=== PATIENT | male | born 2000 | race African-American/Black ===

== ENCOUNTER 2018-10-16 06:50 | Inpatient (IN) | payer OTHER ==
[~2018-10-16] VITALS: Ht 175.3 cm; Wt 57.8 kg
[2018-10-16] MEDS ORDERED: PRED20TA PO (07:09)
[2018-10-16] MEDS ORDERED: HYDR-3363 PO (07:09)
[2018-10-16] MEDS ORDERED: ALLE1DRO2 OP (07:09)
[2018-10-16] MEDS ORDERED: FAMOTIDINE IV BAG 20 MG in APPROPRIATE DILUENT 1 EA IV ONE (07:15)
[2018-10-16] MEDS ORDERED: methylPREDNISolone INJ 125 MG/2 ML VIAL (J2930) IV ONE (07:15)
[2018-10-16] MEDS ORDERED: diphenhydrAMINE INJ 50MG/ML VIAL (J1200) IV ONE (07:15)
[2018-10-16] MEDS ORDERED: **UNRESOLVED NON-FORMULARY MED ORDER XX SCH (09:00)
[2018-10-16] MEDS ORDERED: ZADI1DRO OU (09:24)
[2018-10-16] MEDS ORDERED: HYDR50TA70 PO (09:24)
[2018-10-16] MEDS ORDERED: EPIP0.3I2 IM (09:25)
[2018-10-16] MEDS ORDERED: NS 1,000 ML IV ONE (09:30)
[2018-10-16 09:53] LABS: BASO % 0.4 % (0.0-1.0); EOS # 0.2 10^3/uL (0.0-0.50); EOS % 3.3 % (0.0-3.0); HEMATOCRIT 40.9 % (42.0-52.0); HEMOGLOBIN 13.5 g/dl (13.5-17.5); LYMPH # 1.1 10^3/uL (1.5-6.5); LYMPH % 16.1 % (24.0-44.0); MEAN CORPUSCULAR HEMOGLOBIN 30.4 pg (27.0-33.0); MEAN CORPUSCULAR VOLUME 92.1 fl (80.0-96.0); MONO # 0.4 10^3/uL (0.0-0.8); MONO % 5.2 % (0.0-5.0); NEUTROPHILS # 5.3 10^3/uL (1.8-7.7); NEUTROPHILS % 74.7 % (36.0-66.0); PLATELET COUNT, AUTOMATED 228 10^3/uL (150-450); RED BLOOD COUNT 4.44 10^6/uL (4.30-6.10); WHITE BLOOD COUNT 7.1 10^3/uL (4.0-10.0)
[2018-10-16 10:00] LABS: BLOOD UREA NITROGEN 16 MG/DL (7-18); C REACTIVE PROTEIN QUANTITATIV 0.67 MG/DL (0.00-0.30); CALCIUM LEVEL 9.3 MG/DL (8.5-10.1); CARBON DIOXIDE LEVEL 29 MEQ/L (21-32); CHLORIDE LEVEL 105 MEQ/L (98-107); CREATININE FOR GFR 1.07 MG/DL (0.70-1.30); GLUCOSE, FASTING 90 MG/DL (70-100); POTASSIUM SERUM 3.7 MEQ/L (3.5-5.1); SODIUM LEVEL 139 MEQ/L (136-145)
[2018-10-16 10:14] LABS: ERYTHROCYTE SEDIMENTATION RATE 27 mm/hr (0-15)
[2018-10-16] MEDS ORDERED: ACETAMINOPHEN TAB 650MG DOSE (2X325MG) PO PRN (13:45)
[2018-10-16 14:26] VITALS: BP 134/72
[2018-10-16] MEDS: LACRILUBE (AKWA TEARS) OPHTH OINT 3.5 GM OU SCH ×3 (14:52→20:41)
[2018-10-16] MEDS: SANDIMMUNE PO SCH ×2 (15:49→20:43)
--- NOTE | 2018-10-16 16:50 | HPEPDOC ---
General Date of Admission Oct 16, 2018 at 13:05 Chief Complaint The patient is a 18-year-old male admitted with a reason for visit of Santo J ohnson Syndrome. History of Present Illness The patient is a 18 y/o male who presents to the ER for concerns regarding pain in oral mucosa, gum bleeding as well as difficulty opening eyes/" film" in his eyes The patient reports that last week, he had a respiratory infection. At that time had some cough with some brownish sputum as well as burning in his throat. He reports this week the cough has been whitish/greenish. No associated fevers/chills or sweats. The throat burning has improved. However, on Sunday night, he noticed that his eyes felt a little sticky. He reports he has allergies to hospice as well as some kind of treehe reports he had a allergy testing done previously but is unsure as to what tree exactly he was allergic to. On Sunday, the patient noticed that his lips and face were swollen and also felt some pain on the inside of his lips when he thought there might be some carts. He also noticed on Sunday when he tried to pressures teeth that there was some gum bleeding. On Sunday, he noticed bumps under the tongue. He reports that the inside of his mouth started burning. He reports he was started on prednisone 40 mg daily as well as hydroxyzine 50 mg which she [place]. On Sunday morning, he reports it took a while for him to be able to open his eyes as they were sticky. His mouth was burning again. Today, the patient reports he could not open his eyes again and he also has been having difficulty swallowing food secondary to the pain in his mouth. As a result, he presented to the ER. No specific aggravating factor. No specific relieving factor. Severity of his symptoms is moderate. As noted, symptoms did not improve despite prednisone and hydroxyzine. Home Medications Scheduled Prednisone (Prednisone) 20 Mg Tablet, 40 MG PO TAPER, (Reported) TAPERING DOSE Scheduled PRN Epinephrine (Epipen 2-Srini) 0.3 Mg/0.3 Ml Auto.injct, 1 SYRINGE IM ONCE PRN for ALLERGIC REACTION, (Reported) Hydroxyzine HCl (Hydroxyzine HCl) 50 Mg Tablet, 50 MG PO TID PRN for ITCHING, (Reported) Ketotifen Fumarate (Zaditor) 5 Ml Drops, 1 DROP OU BID PRN for ITCHING, (Reported) Allergies Coded Allergies: horse dander (Unverified Allergy, Unknown, 10/16/18) Past Medical History Medical History None Surgical History None Family History Denies any major medical problems in the family. Family history was personally reviewed. Social History * Smoker: Denies Alcohol: Denies Drugs: denies Review of Systems Other systems Negative for 10 systems except as noted above Physical Examination General Exam: Positive: Alert, Cooperative, No Acute Distress Eye Exam: Positive: PERRLA, Other Eye Symptoms (slight conjunctival injection. Cornea appears clear. Slight thickened secretions/superficial material noted - no obvious purulence.) ENT Exam: Positive: Other ENT (superficial sloughing involving oral mucosa or the palate, buccal mucosa as well as under the tongue) Chest Exam: Positive: Clear to auscultation, Normal air movement Heart Exam: Positive: Rate Normal, Normal S1, Normal S2 Abdomen Exam: Positive: Normal bowel sounds, Soft Skin Exam: Negative: Rash Neuro Exam: Positive: Other (awake, alert, oriented 3. Strength 5 over 5 in bilateral upper and lower extremities. No lateralizing deficit.) Psych Exam: Positive: Mental status NL Vital Signs Vital Signs Date Time Temp Pulse Resp B/P (MAP) Pulse Ox O2 Delivery O2 Flow Rate FiO2 10/16/18 10:53 98.1 67 17 129/74 (92) 100 Room Air Laboratory Data Labs 24H Laboratory Tests 2 10/16/18 09:21: Immature Granulocyte % (Auto) 0.3, White Blood Count 7.1, Red Blood Count 4.44, Hemoglobin 13.5, Hematocrit 40.9L, Mean Corpuscular Volume 92.1, Mean Corpuscular Hemoglobin 30.4, Mean Corpuscular Hemoglobin Concent 33.0, Red Cell Distribution Width 14.6H, Platelet Count 228, Neutrophils (%) (Auto) 74.7H, Lymphocytes (%) (Auto) 16.1L, Monocytes (%) (Auto) 5.2H, Eosinophils (%) (Auto) 3.3H, Basophils (%) (Auto) 0.4, Neutrophils # (Auto) 5.3, Lymphocytes # (Auto) 1.1L, Monocytes # (Auto) 0.4, Eosinophils # (Auto) 0.2, Basophils # (Auto) 0.0, Nucleated Red Blood Cells % (auto) 0.0, Erythrocyte Sedimentation Rate 27H, Anion Gap 5L, Blood Urea Nitrogen 16, Creatinine 1.07, Sodium Level 139, Potassium Level 3.7, Chloride Level 105, Carbon Dioxide Level 29, Calcium Level 9.3, C-Reactive Protein, Quantitative 0.67H CBC/BMP Laboratory Tests 10/16/18 09:21 Red Blood Count 4.44, Mean Corpuscular Volume 92.1, Mean Corpuscular Hemoglobin 30.4, Mean Corpuscular Hemoglobin Concent 33.0, Red Cell Distribution Width 14.6 H, Neutrophils (%) (Auto) 74.7 H, Lymphocytes (%) (Auto) 16.1 L, Monocytes (%) (Auto) 5.2 H, Eosinophils (%) (Auto) 3.3 H, Basophils (%) (Auto) 0.4, Neutrophils # (Auto) 5.3, Lymphocytes # (Auto) 1.1 L, Monocytes # (Auto) 0.4, Eosinophils # (Auto) 0.2, Basophils # (Auto) 0.0, Calcium Level 9.3 Microbiology Microbiology 10/16/18 Group A Streptococcus Screen (TASIA), Received Pending Assessment/Plan Conjunctival injection as well as superficial sloughing of oral mucosa, 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 Norwood from ophthalmologyhe recommends ophthalmic prednisone as well as moxifloxacin eyedrops. -Because of the sloughing, patient had developed a film over his eyes which was limiting his vision - the film was cleared by Dr. Norwood today. -Outpatient follow-up with him in one week if improves, otherwise he will reevaluate as inpatient if needed. -Patient would certainly benefit from dermatology follow-up as well on dischargecurrently we do not have dermatology distribution analyst -Discussed with patientwe will monitor him closely. If he has worsening symp toms, may require her to a tertiary facility. Cough: -Likely related to upper respiratory infection -Lungs sound clear -Afebrile -Normal WBC -No indication for antibiotics at this time. DVT prophylaxis: -SCDs Disposition: -Admit to medical floor as inpatient as patient has failed outpatient treatment. Anticipated length of stay more than 2 midnights. Anticipate discharge home once medically stable. Plan / VTE VTE Prophylaxis Ordered?: Yes VTE Exclusion Pharmacological: At Low Risk for VTE SERINA CASTELLANOS MD Oct 16, 2018 14:03
[2018-10-16] MEDS: prednisoLONE ACET 1% OPHTH SUSP 5ML OU SCH ×2 (18:16→20:41)
[2018-10-16] MEDS: predniSONE 20 MG TAB PO SCH (20:40)
[2018-10-16] MEDS: OFLOXACIN 0.3 % (OCUFLOX) OPTH SOL 5ML OU SCH (20:44)
[2018-10-16 22:00] VITALS: BP 131/61
[2018-10-17] MEDS: LACRILUBE (AKWA TEARS) OPHTH OINT 3.5 GM OU SCH ×6 (01:21→20:59)
[2018-10-17 06:00] VITALS: BP 124/64
[2018-10-17 06:01] LABS: HEMATOCRIT 42.4 % (42.0-52.0); HEMOGLOBIN 14.2 g/dl (13.5-17.5); MEAN CORPUSCULAR HEMOGLOBIN 29.8 pg (27.0-33.0); MEAN CORPUSCULAR HGB CONC 33.5 g/dl (32.0-36.5); MEAN CORPUSCULAR VOLUME 89.1 fl (80.0-96.0); PLATELET COUNT, AUTOMATED 279 10^3/uL (150-450); RED BLOOD COUNT 4.76 10^6/uL (4.30-6.10); WHITE BLOOD COUNT 7.2 10^3/uL (4.0-10.0)
[2018-10-17 06:28] LABS: ALBUMIN 3.8 GM/DL (3.2-5.2); ALT/SGPT 19 U/L (12-78); BILIRUBIN,TOTAL 0.6 MG/DL (0.2-1.0); BLOOD UREA NITROGEN 17 MG/DL (7-18); CALCIUM LEVEL 9.1 MG/DL (8.5-10.1); CARBON DIOXIDE LEVEL 25 MEQ/L (21-32); CHLORIDE LEVEL 104 MEQ/L (98-107); GLUCOSE, FASTING 106 MG/DL (70-100); POTASSIUM SERUM 3.8 MEQ/L (3.5-5.1); SODIUM LEVEL 138 MEQ/L (136-145); TOTAL PROTEIN 7.8 GM/DL (6.4-8.2)
--- NOTE | 2018-10-17 08:15 | CR ---
DATE OF CONSULTATION: 10/16/2018 CHIEF COMPLAINT: Red eyes HISTORY OF PRESENT ILLNESS: 18-year-old old -Citizen Of [place] male who presented to the emergency department with 5 days of oral ulcers and bilateral red eyes and irritation. He reports a history two other similar episodes but no eye involvement about 4 years ago and was worked up at the time and found to be allergic to "horses". He was in his normal state of health prior to last Sunday when he had a mild viral prodrome with fatigue and a cough. Sunday, he began to develop oral ulcers as well as bilateral eye irritation. He denies any ocular discharge. He states that his vision in left eye is slightly blurry, which has always been weaker than the right eye. He does not wear contact lenses or corrective glasses. The patient denies any recent change in medications or recent travel outside of the [place]. PAST MEDICAL HISTORY: Please see chart. No new medications. PAST OCULAR HISTORY: History of poor vision or reduced vision in the left eye. No history of prior ocular surgery. No ocular medications. REVIEW OF SYSTEMS: Patient has no upper or lower extremity rash. No truncal rash. No rash on the face or periocular area. He does have angioedematous upper and lower lips with mucosal ulceration on inside of the mouth. He denies any genital ulcers or ulcers elsewhere on the body. He has ocular irritation and foreign body sensation. EXAM: Exam is a limited bedside exam. Visual acuity is approximately 20/30 in the right and 20/60 in the left eye uncorrected. Extraocular muscles are full without gaze restriction bilaterally. Pupils are equal and round and reactive to light, 4 mm to 2 mm in bright conditions with no RAPD. He is in no acute distress. Awake, alert and oriented times three and appears comfortable in bed, watching TV. He has upper and lower angioedematous lips with ulceration as well as onto the tongue. Conjunctiva and sclerae are mildly injected OU. Upon lower and upper lid eversion, there is pseudomembrane formation that does not bleed on removal. This was removed bilaterally and the fornices were swept. The cornea is clear OU with no corneal abrasion. The lens is clear. The iris is brown and flat. Dilated fundus exam was deferred at this time. ASSESSMENT/PLAN: 1. 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 Could potentially be viral or bacterial given recent illness versus recurrent autoimmune atopic condition. 2. Pseudomembranous conjunctivitis. 3. 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 PLAN: If available, preservative-free artificial tears every 1 hour bilaterally while awake and ointment ocular lubricant while asleep. If this is not available, he can use ocular ointment preservative free, every 4 hours. Start prednisolone acetate 1% four times a day in both eyes. Moxifloxacin drops 0.5% one drop four times a day bilaterally. Patient will be scheduled to be seen in the office in approximately 5-7 days upon discharge or sooner if there is any change in his ocular status. Dermatology was consulted, Dr. Simon Hill regarding the oral ulcers and possible skin rash around the mouth. This consultation was relayed to dermatology as well as the primary team, Dr. Alvarado taking care of Mr. Taylor. Thank you for this consultation. I will be happy to see the patient as needed while inpatient if there is a change in ocular status. Otherwise, he can followup as an outpatient in about 5-7 days. MARVA
[2018-10-17] MEDS: prednisoLONE ACET 1% OPHTH SUSP 5ML OU SCH ×4 (08:27→20:59)
[2018-10-17] MEDS: OFLOXACIN 0.3 % (OCUFLOX) OPTH SOL 5ML OU SCH ×4 (08:27→20:59)
[2018-10-17] MEDS: predniSONE 20 MG TAB PO SCH ×2 (08:27→20:59)
[2018-10-17] MEDS: SANDIMMUNE PO SCH (08:27)
[2018-10-17] MEDS ORDERED: AZITHROMYCIN 250 MG TAB PO ONE (09:15)
--- NOTE | 2018-10-17 09:38 | IPNPDOC ---
Date Seen The patient was seen on 10/17/18. Progress Note CONSULTANTS: OPTHALMOLOGIST: DR. NORWOOD ENT: DR. TELLES DUMBWAITER OPERATOR: DR. CHAPMAN SUBJECTIVE: Pt continues to complain of sore throat, tongue tenderness, and gingival pain. "It feels like the skin in my throat is burning." No c/o sob. c/o odynophagia. no hematemesis, nausea, or vomiting. still w painful eyes. no redness. Per Compliance And Control Analyst,Dr. Chapman, check mono, mycoplasma, and respiratory panel due to h/o URI symptoms, continue tapered prednisone, and dc cyclosporine. ENT. Dr. Telles has been consulted for odynophagia for laryngoscopy. Physical Examination General Exam: Positive: Alert, Cooperative, No Acute Distress Eye Exam: Positive: PERRLA, Other Eye Symptoms (slight conjunctival injection. Cornea appears clear. Slight thickened secretions/superficial material noted - no obvious purulence.) ENT Exam: Positive: Other ENT (superficial sloughing involving oral mucosa or the palate, buccal mucosa as well as under the tongue) Chest Exam: Positive: Clear to auscultation, Normal air movement Heart Exam: Positive: Rate Normal, Normal S1, Normal S2 Abdomen Exam: Positive: Normal bowel sounds, Soft Skin Exam: Negative: Rash Neuro Exam: Positive: Other (awake, alert, oriented 3. Strength 5 over 5 in bilateral upper and lower extremities. No lateralizing deficit.) Psych Exam: Positive: Mental status NL LABORATORY DATA, IMAGING STUDIES, MICROBIOLOGY: PLS SEE BELOW Assessment/Plan The patient is a 18 y/o male who presents to the ER for concerns regarding pain in oral mucosa, gum bleeding as well as difficulty opening eyes/" film" in his eyes. The patient reports that last week, he had a respiratory infection. At that time had some cough with some brownish sputum as well as burning in his throat. He reports this week the cough has been whitish/greenish. No associated fevers/chills or sweats. The throat burning has improved. However, on Sunday night, he noticed that his eyes felt a little sticky. He reports he has allergies to hospice as well as some kind of treehe reports he had a allergy testing done previously but is unsure as to what tree exactly he was allergic to.On Sunday, the patient noticed that his lips and face were swollen and also felt some pain on the inside of his lips when he thought there might be some carts. He also noticed on Sunday when he tried to pressures teeth that there was some gum bleeding. On Sunday, he noticed bumps under the tongue. He reports that the inside of his mouth started burning. He reports he was started on prednisone 40 mg daily as well as hydroxyzine 50 mg which she has been taking [place] On Sunday morning, he reports it took a while for him to be able to open his eyes as they were sticky. His mouth was burning again. Today, the patient reports he could not open his eyes again and he also has been having difficulty swallowing food secondary to the pain in his mouth. As a result, he presented to the ER. No specific aggravating factor. No specific relieving factor. Severity of his symptoms is moderate. As noted, symptoms did not improve despite prednisone and hydroxyzine. Mucocutaneous Santo-Ciro syndrome, with failed outpatient treatment: -discontinued cyclosporine 100 g twice daily, on prednisone 60 mg twice daily to be tapered -Preservative-free artificial tear ointment every 4 hours to both eyes -Case was discussed with Dr. Norwood from ophthalmologyhe recommends ophthalmic prednisone as well as moxifloxacin eyedrops. -Because of the sloughing, patient had developed a film over his eyes which was limiting his vision - the film was cleared by Dr. Norwood -Outpatient follow-up with him in one week if improves, otherwise he will reevaluate as inpatient if needed. -Dr. Chapman, Dermatology, has been consulted. -Pt continues to complain of sore throat, tongue tenderness, and gingival pain. "It feels like the skin in my throat is burning." No c/o sob. c/o odynophagia. no hematemesis, nausea, or vomiting. still w painful eyes. no redness. Per Compliance And Control Analyst,Dr. Chapman, check mono, mycoplasma, and respiratory panel due to h/o URI symptoms, continue tapered prednisone, and dc cyclosporine. ENT. Dr. Telles has been consulted for odynophagia for laryngoscopy. upper respiratory infection -Lungs sound clear -Afebrile -Normal WBC -due to concerns of mycoplasma infection, reasonable to start on azithromycin. -check mono, mycoplasma, and respiratory panel Odynophagia -r/o pharyngeal extension with laryngoscopy -ENT Dr. Telles consulted. DVT prophylaxis: -SCDs VS, I&O, 24H, Fishbone Vital Signs/I&O Vital Signs Date Time Temp Pulse Resp B/P (MAP) Pulse Ox O2 Delivery O2 Flow Rate FiO2 10/17/18 06:00 98.0 60 16 124/64 (84) 100 10/16/18 14:10 Room Air I&O- Last 24 Hours up to 6 AM 10/17/18 06:00 Intake Total 1290 ml Output Total 500 ml Balance 790 ml Laboratory Data 24H LABS Laboratory Tests 2 10/17/18 05:44: Nucleated Red Blood Cells % (auto) 0.0, Anion Gap 9, Blood Urea Nitrogen 17, Creatinine 1.00, Sodium Level 138, Potassium Level 3.8, Chloride Level 104, Carbon Dioxide Level 25, Calcium Level 9.1, Aspartate Amino Transf (AST/SGOT) 15, Alanine Aminotransferase (ALT/SGPT) 19, Alkaline Phosphatase 81, Total Bilirubin 0.6, Total Protein 7.8, Albumin 3.8, Magnesium Level 2.0, Albumin/Globulin Ratio 0.95L CBC/BMP Laboratory Tests 10/17/18 05:44 Red Blood Count 4.76, Mean Corpuscular Volume 89.1, Mean Corpuscular Hemoglobin 29.8, Mean Corpuscular Hemoglobin Concent 33.5, Red Cell Distribution Width 1 4.3, Calcium Level 9.1, Aspartate Amino Transf (AST/SGOT) 15, Alanine Aminotransferase (ALT/SGPT) 19, Alkaline Phosphatase 81, Total Bilirubin 0.6, Total Protein 7.8, Albumin 3.8 Microbiology Microbiology 10/16/18 Respiratory Virus Panel (PCR) (TASIA) - Final, Complete 10/16/18 Group A Streptococcus Screen (TASIA) - Final, Complete JUSTIN VIVAS MD Oct 17, 2018 09:38
[2018-10-17] MEDS ORDERED: LIDOCAINE VISCOUS 2% SOLN 15ML UDC PO ONE (10:00)
--- NOTE | 2018-10-17 10:33 | REP ---
Portable chest: Single view. History: Cough. Comparison study: No comparison study. Findings: The lungs are symmetrically aerated and clear. Pleural angles are sharp. Cardiomediastinal silhouette is unremarkable. Pulmonary vasculature is not increased. No bony abnormality is seen. Impression: Negative portable chest x-ray. Electronically Signed by Jerson Portillo MD 10/17/2018 10:24 A
[2018-10-17 10:39] LABS: MONO REFLEX EBV VCA IgM NEGATIVE (NEGATIVE)
[2018-10-17 14:00] VITALS: BP 134/77
--- NOTE | 2018-10-17 14:02 | CR ---
DATE OF CONSULTATION: 10/17/2018 Gilbert is a 18-year-old male who presents with a history of blisters and sores on his mouth. He presented 5 days ago to the emergency department with itching of his eyes and his lips. He developed blisters/ulceration inside his mouth and lips. A week prior to that, he developed a sore throat and a mucus sensation in his throat. He had no fever. He had no nasal symptoms until yesterday when he had some bleeding from both sides of the nose. He was not on any medication prior to that. Otherwise, the patient says that a number of years ago he had the same problem, which lasted for several weeks. Examination shows the patient alert and oriented in no distress with breathing. His lips are swollen. They are blistered and ulcerated. He has ulceration in the oral mucosa along the labial area, buccal area, and in the floor of the mouth. There is hyperemia of the soft and hard palate mucosa. On examination using the nasopharyngoscope, I examined the nose, nasopharynx, oropharynx, hypopharynx, and larynx. This shows similar findings in the posterior pharyngeal wall. The rest of the examination was normal except that there was erosion of the nasal septum anteriorly on both sides. IMPRESSION: The patient has a history of oral ulcerations mimicking Santo-Ciro syndrome. He has not progressed. He is on oral steroid therapy. He has no airway issues at the present time. PLAN: I will see him in followup as necessary. I think he will progressively improve with the treatment you have instituted. Edited: [place] 10/20/2018 1225
[2018-10-17] MEDS ORDERED: LIDOCAINE VISCOUS 2% SOLN 15ML UDC SS ONE (16:00)
--- NOTE | 2018-10-17 19:27 | CR.PDOC ---
General Date of Consultation: Oct 17, 2018 Referring Provider: VALERIE XIONG DO Consultation REASON FOR CONSULTATION/CHIEF COMPLAINT: Sores on lips, eye mucosa HISTORY OF PRESENT ILLNESS: The patient is a 18 y/o male who presented to the ER with concerns regarding pain in oral mucosa, gum bleeding as well as difficulty opening eyes with gritty sensation and film in the eye. The patient reports that last week, he had a respiratory infection. At that time had some cough with some brownish sputum as well as burning in his throat. He reports this week the cough has been whitish/greenish. No associated fevers /chills or sweats. The throat burning has improved. However, on Sunday night, he noticed that his eyes felt a little sticky. He reports he has allergies to horse dander as well as some kind of tree. He reports he had an allergy testing done previously but is unsure as to what tree exactly he was allergic to. On Sunday, the patient noticed that his lips and face were swollen and also felt some pain on the inside of his lips. He also noticed on Sunday when he tried to brush teeth that there was some gum bleeding. On Sunday, he noticed bumps around the tongue and lips. He reports that the inside of his mouth started burning. He reports he was started on prednisone 40 mg daily as well as hydroxyzine 50 mg which [place]. On Sunday morning, he reports it took a while for him to be able to open his eyes as they were sticky. His mouth was burning again. Yesterday, the patient reports he could not open his eyes again and he was also having difficulty swallowing food secondary to the pain in his mouth. As a result, he presented to the ER at [facility]. No specific aggravating factor. No specific relieving factor. Severity of his symptoms is moderate. As noted, symptoms did not improve despite prednisone and hydroxyzine. Inpatient, he was started on prednisone 60, cyclosporine 100 mg PO BID, and ophthalmology was consulted. He is doing well today with his friend at bedside, eating breakfast. He denies any new medications, supplements, or OTC medications in the preceding 1-3 weeks. No repeat cold sores around mouth or groin in the past. Labs notable for elevated CRP at 0.67, negative RVP, negative strep swab, negative mono spot test inpatient, currently EBV, adeno, and mycoplasma blood tests are pending. ALLERGIES: Please see below. HOME MEDICATIONS: Please see below. PAST MEDICAL HISTORY: 1. Nil PAST SURGICAL HISTORY: 1. Nil FAMILY HISTORY: Non-contributory SOCIAL HISTORY: Illicit drug use: Nil IV drug use: Nil REVIEW OF SYSTEMS: CONSTITUTIONAL: No fever, no chills, no weight loss, no oral or genital sores MSK: No joint stiffness LYMPH: No swollen lumps or bumps in groin, neck No trouble or pain with swallowing, urinating, defecating PHYSICAL EXAMINATION: VITAL SIGNS: Please see below. GENERAL APPEARANCE: WDWNAAM in NAD, resting comfortably and eating with friend at bedside HEENT: NC/AT RESPIRATORY: RRR CARDIOVASCULAR: No edema in the lower extremities ABDOMEN: Soft, supple EXTREMITIES/SKIN: Lips with erosions with mild erythema of buccal mucosa, tongue, hard/soft palate, posterior throat near tonsils (no erosions outside lips to buccal region with lips predominant); faint conjunctival edema and injection that is minimal bilaterally; negative Nikolsky sign, no blistering or fragile skin NEUROLOGICAL: No focal deficits PSYCHIATRIC: Pleasant, mood congruent to situation LABORATORY DATA: Please see below. ASSESSMENT/PLAN: 1. Mucositis: I favor Mycoplasma or other viral/bacterial mucositis. Infectious triggers of mucositis are common. Another consideration would be HSV > lichen planus. In addition to the EBV, adeno, and myco blood testing, I would recommend swabbing his lips for HSV 1/2 on a red top tube. I do not favor SJS/TEN, I would recommend discontinuing if not already done cyclosporine, prednisone. I would start azithromycin for standard outpatient course of 5-10 days. He should follow up outpatient with his primary care physician and we are happy to see him in dermatology as well within 2-3 weeks of discharge if team can call [phone] to set up appointment. I will continue to follow the patient to check on his clinical status and the above pending recommendations and tests. Thank you for this consult and please remove the duplicate consult placed on this patient. Patti Walker MD FAAD Vital Signs/I&O Vital Signs Date Time Temp Pulse Resp B/P (MAP) Pulse Ox O2 Delivery O2 Flow Rate FiO2 10/17/18 14:00 97.4 83 18 134/77 (96) 99 4/17/19 14:10 Room Air I&O- Last 24 Hours up to 6 AM 10/17/18 06:00 Intake Total 1290 ml Output Total 500 ml Balance 790 ml Laboratory Data Labs 24H Laboratory Tests 2 10/17/18 05:44: Nucleated Red Blood Cells % (auto) 0.0, Anion Gap 9, Blood Urea Nitrogen 17, Creatinine 1.00, Sodium Level 138, Potassium Level 3.8, Chloride Level 104, Carbon Dioxide Level 25, Calcium Level 9.1, Aspartate Amino Transf (AST/SGOT) 15, Alanine Aminotransferase (ALT/SGPT) 19, Alkaline Phosphatase 81, Total Bilirubin 0.6, Total Protein 7.8, Albumin 3.8, Magnesium Level 2.0, Albumin /Globulin Ratio 0.95L 10/17/18 10:03: Monoscreen NEGATIVE 10/17/18 10:04: CBC/BMP Laboratory Tests 10/17/18 05:44 Red Blood Count 4.76, Mean Corpuscular Volume 89.1, Mean Corpuscular Hemoglobin 29.8, Mean Corpuscular Hemoglobin Concent 33.5, Red Cell Distribution Width 14.3, Calcium Level 9.1, Aspartate Amino Transf (AST/SGOT) 15, Alanine Aminotransferase (ALT/SGPT) 19, Alkaline Phosphatase 81, Total Bilirubin 0.6, Total Protein 7.8, Albumin 3.8 Microbiology Microbiology 10/16/18 Respiratory Virus Panel (PCR) (TASIA) - Final, Complete 10/16/18 Group A Streptococcus Screen (TASIA) - Final, Complete Allergies Coded Allergies: horse dander (Unverified Allergy, Unknown, 10/16/18) Home Medications Scheduled Prednisone (Prednisone) 20 Mg Tablet, 40 MG PO TAPER, (Reported) TAPERING DOSE Scheduled PRN Epinephrine (Epipen 2-Srini) 0.3 Mg/0.3 Ml Auto.injct, 1 SYRINGE IM ONCE PRN for ALLERGIC REACTION, (Reported) Hydroxyzine HCl (Hydroxyzine HCl) 50 Mg Tablet, 50 MG PO TID PRN for ITCHING, (Reported) Ketotifen Fumarate (Zaditor) 5 Ml Drops, 1 DROP OU BID PRN for ITCHING, (Reported) PATTI WALKER MD Oct 17, 2018 19:27
[2018-10-17] MEDS: LIDOCAINE VISCOUS 2% SOLN 15ML UDC SS PRN (20:59)
[2018-10-17 22:00] VITALS: BP 140/86
[2018-10-18] MEDS: LACRILUBE (AKWA TEARS) OPHTH OINT 3.5 GM OU SCH ×6 (00:10→21:17)
[2018-10-18] MEDS: LIDOCAINE VISCOUS 2% SOLN 15ML UDC SS PRN (04:59)
[2018-10-18 06:00] VITALS: BP 121/70
[2018-10-18 07:45] LABS: BASO % 0.1 % (0.0-1.0); HEMATOCRIT 42.4 % (42.0-52.0); HEMOGLOBIN 14.4 g/dl (13.5-17.5); LYMPH % 13.3 % (24.0-44.0); MEAN CORPUSCULAR HEMOGLOBIN 30.4 pg (27.0-33.0); MEAN CORPUSCULAR VOLUME 89.6 fl (80.0-96.0); MONO # 0.4 10^3/uL (0.0-0.8); MONO % 4.9 % (0.0-5.0); NEUTROPHILS # 6.2 10^3/uL (1.8-7.7); NEUTROPHILS % 81.4 % (36.0-66.0); PLATELET COUNT, AUTOMATED 264 10^3/uL (150-450); RED BLOOD COUNT 4.73 10^6/uL (4.30-6.10); WHITE BLOOD COUNT 7.6 10^3/uL (4.0-10.0)
[2018-10-18 08:09] LABS: ALBUMIN 3.8 GM/DL (3.2-5.2); ALT/SGPT 18 U/L (12-78); BILIRUBIN,TOTAL 0.5 MG/DL (0.2-1.0); BLOOD UREA NITROGEN 19 MG/DL (7-18); C REACTIVE PROTEIN QUANTITATIV < 0.30 MG/DL (0.00-0.30); CALCIUM LEVEL 9.5 MG/DL (8.5-10.1); CARBON DIOXIDE LEVEL 28 MEQ/L (21-32); CHLORIDE LEVEL 104 MEQ/L (98-107); CREATININE FOR GFR 0.98 MG/DL (0.70-1.30); GLUCOSE, FASTING 109 MG/DL (70-100); SODIUM LEVEL 138 MEQ/L (136-145); TOTAL PROTEIN 7.5 GM/DL (6.4-8.2)
[2018-10-18] MEDS ORDERED: OFLO3OPSO OU (09:15)
[2018-10-18] MEDS ORDERED: LIDO2SO SS (09:15)
[2018-10-18] MEDS ORDERED: PREDOPD OU (09:15)
[2018-10-18] MEDS ORDERED: LIDOCAINE VISCOUS 2% SOLN 15ML UDC SS ONE (09:15)
[2018-10-18] MEDS ORDERED: AZIT-12 PO (09:15)
[2018-10-18] MEDS ORDERED: AKWA1OIN OU (09:15)
[2018-10-18] MEDS: prednisoLONE ACET 1% OPHTH SUSP 5ML OU SCH ×4 (09:16→21:17)
[2018-10-18] MEDS: AZITHROMYCIN 250 MG TAB PO SCH (09:16)
[2018-10-18] MEDS: OFLOXACIN 0.3 % (OCUFLOX) OPTH SOL 5ML OU SCH ×4 (09:16→21:17)
[2018-10-18] MEDS: LIDOCAINE VISCOUS 2% SOLN 15ML UDC SS SCH ×2 (12:09→17:21)
[2018-10-18 14:00] VITALS: BP 126/66
[2018-10-18 14:41] LABS: ERYTHROCYTE SEDIMENTATION RATE 29 mm/hr (0-15)
--- NOTE | 2018-10-18 16:32 | IPNPDOC ---
Date Seen The patient was seen on 10/18/18. Progress Note CONSULTANTS: OPTHALMOLOGIST: DR. NORWOOD ENT: DR. TELLES [place]OWN OPERATOR: DR. CHAPMAN SUBJECTIVE: Pt continues to complain of sore throat, tongue tenderness, and gingival pain. "It feels like the skin in my throat is burning." No c/o sob. c/o odynophagia. no hematemesis, nausea, or vomiting. still w painful eyes. no redness. Per Solar Process Engineer,Dr. Chapman, check mono, mycoplasma, and respiratory panel due to h/o URI symptoms, continue tapered prednisone, and dc cyclosporine. ENT. Dr. Telles has been consulted s/p 10/17/18 nasopharyngoscope,"nose, nasopharynx, oropharynx, hypopharynx and larynx with hyperemia, ulcers. similar findings in the posterior pharyngeal wall. The rest of the examination was normal except that there was erosion of the nasal septum anteriorly on both sides." Physical Examination General Exam: Positive: Alert, Cooperative, No Acute Distress Eye Exam: Positive: PERRLA, Other Eye Symptoms (slight conjunctival injection. Cornea appears clear. Slight thickened secretions/superficial material noted - no obvious purulence.) ENT Exam: Positive: Other ENT (superficial sloughing involving oral mucosa or the palate, buccal mucosa as well as under the tongue) Chest Exam: Positive: Clear to auscultation, Normal air movement Heart Exam: Positive: Rate Normal, Normal S1, Normal S2 Abdomen Exam: Positive: Normal bowel sounds, Soft Skin Exam: Negative: Rash Neuro Exam: Positive: Other (awake, alert, oriented 3. Strength 5 over 5 in bilateral upper and lower extremities. No lateralizing deficit.) Psych Exam: Positive: Mental status NL LABORATORY DATA, IMAGING STUDIES, MICROBIOLOGY: PLS SEE BELOW Assessment/Plan The patient is a 18 y/o male who presents to the ER for concerns regarding pain in oral mucosa, gum bleeding as well as difficulty opening eyes/" film" in his eyes. The patient reports that last week, he had a respiratory infection. At that time had some cough with some brownish sputum as well as burning in his throat. He reports this week the cough has been whitish/greenish. No associated fevers/chills or sweats. The throat burning has improved. However, on Sunday night, he noticed that his eyes felt a little sticky. He reports he has allergies to hospice as well as some kind of treehe reports he had a allergy testing done previously but is unsure as to what tree exactly he was allergic to.On Sunday, the patient noticed that his lips and face were swollen and also felt some pain on the inside of his lips when he thought there might be some carts. He also noticed on Sunday when he tried to pressures teeth that there was some gum bleeding. On Sunday, he noticed bumps under the tongue. He reports that the inside of his mouth started burning. He reports he was started on prednisone 40 mg daily as well as hydroxyzine 50 mg which she [place] been [place]. On Sunday morning, he reports it took a while for him to be able to open his eyes as they were sticky. His mouth was burning again. Today, the patient reports he could not open his eyes again and he also has been having difficulty swallowing food secondary to the pain in his mouth. As a result, he presented to the ER. No specific aggravating factor. No specific relieving factor. Severity of his symptoms is moderate. As noted, symptoms did not improve despite prednisone and hydroxyzine. Mucocutaneous Santo-Ciro syndrome, with failed outpatient treatment: -discontinued cyclosporine 100 g twice daily, on prednisone 60 mg twice daily to be tapered -Preservative-free artificial tear ointment every 4 hours to both eyes -Case was discussed with Dr. Norwood from ophthalmologyhe recommends ophthalmic prednisone as well as moxifloxacin eyedrops. -Because of the sloughing, patient had developed a film over his eyes which was limiting his vision - the film was cleared by Dr. Norwood -Outpatient follow-up with him in one week if improves, otherwise he will reevaluate as inpatient if needed. -Dr. Chapman, Dermatology, has been consulted. -Pt continues to complain of sore throat, tongue tenderness, and gingival pain. "It feels like the skin in my throat is burning." No c/o sob. c/o odynophagia. no hematemesis, nausea, or vomiting. still w painful eyes. no redness. Per Solar Process Engineer,Dr. Chapman, check mono, mycoplasma, and respiratory panel due to h/o URI symptoms, continue tapered prednisone, and dc cyclosporine. ENT. Dr. Telles has been consulted for odynophagia for laryngoscopy. -s/p 10/17/18 nasopharyngoscope,"nose, nasopharynx, oropharynx, hypopharynx and larynx with hyperemia, ulcers. similar findings in the posterior pharyngeal wall. The rest of the examination was normal except that there was erosion of the nasal septum anteriorly on both sides." upper respiratory infection -Lungs sound clear. cxr negative -Afebrile -Normal WBC -due to concerns of mycoplasma infection, reasonable to start on azithromycin. -mono, mycoplasma pending and respiratory panel neg -strep negative -respiratory panel negative Odynophagia -r/o pharyngeal extension with laryngoscopy -ENT Dr. Telles consulted. -s/p 10/17/18 nasopharyngoscope,"nose, nasopharynx, oropharynx, hypopharynx and larynx with hyperemia, ulcers. similar findings in the posterior pharyngeal wall. The rest of the examination was normal except that there was erosion of the nasal septum anteriorly on both sides." DVT prophylaxis: -SCDs disposition: if stable , dc home sunday. VS, I&O, 24H, [facility] Vital Signs/I&O Vital Signs Date Time Temp Pulse Resp B/P (MAP) Pulse Ox O2 Delivery O2 Flow Rate FiO2 10/18/18 14:00 97.3 57 17 126/66 (86) 99 10/16/18 14:10 Room Air I&O- Last 24 Hours up to 6 AM 10/18/18 06:00 Intake Total 1750 ml Output Total 1175 ml Balance 575 ml Laboratory Data 24H LABS Laboratory Tests 2 10/18/18 07:25: Immature Granulocyte % (Auto) 0.3, White Blood Count 7.6, Red Blood Count 4.73, Hemoglobin 14.4, Hematocrit 42.4, Mean Corpuscular Volume 89.6, Mean Corpuscular Hemoglobin 30.4, Mean Corpuscular Hemoglobin Concent 34.0, Red Cell Distribution Width 14.3, Platelet Count 264, Neutrophils (%) (Auto) 81.4H, Lymphocytes (%) (Auto) 13.3L, Monocytes (%) (Auto) 4.9, Eosinophils (%) (Auto) 0.0, Basophils (%) (Auto) 0.1, Neutrophils # (Auto) 6.2, Lymphocytes # (Auto) 1.0L, Monocytes # (Auto) 0.4, Eosinophils # (Auto) 0.0, Basophils # (Auto) 0.0, Nucleated Red Blood Cells % (auto) 0.0, Erythrocyte Sedimentation Rate 29H, Anion Gap 6L, Blood Urea Nitrogen 19H, Creatinine 0.98, Sodium Level 138, Potassium Level 4.0, Chloride Level 104, Carbon Dioxide Level 28, Calcium Level 9.5, Aspartate Amino Transf (AST/SGOT) 9, Alanine Aminotransferase (ALT/SGPT) 18, Alkaline Phosphatase 81, Total Bilirubin 0.5, Total Protein 7.5, Albumin 3.8, C-Reactive Protein, Quantitative < 0.30, Albumin/Globulin Ratio 1.03, Procalcitonin 0.05 CBC/BMP Laboratory Tests 10/18/18 07:25 Red Blood Count 4.73, Mean Corpuscular Volume 89.6, Mean Corpuscular Hemoglobin 30.4, Mean Corpuscular Hemoglobin Concent 34.0, Red Cell Distribution Width 14.3, Neutrophils (%) (Auto) 81.4 H, Lymphocytes (%) (Auto) 13.3 L, Monocytes ( %) (Auto) 4.9, Eosinophils (%) (Auto) 0.0, Basophils (%) (Auto) 0.1, Neutrophils # (Auto) 6.2, Lymphocytes # (Auto) 1.0 L, Monocytes # (Auto) 0.4, Eosinophils # (Auto) 0.0, Basophils # (Auto) 0.0, Calcium Level 9.5, Aspartate Amino Transf (AST/SGOT) 9, Alanine Aminotransferase (ALT/SGPT) 18, Alkaline Phosphatase 81, Total Bilirubin 0.5, Total Protein 7.5, Albumin 3.8 Microbiology Microbiology 10/16/18 Respiratory Virus Panel (PCR) (TASIA) - Final, Complete 10/16/18 Group A Streptococcus Screen (TASIA) - Final, Complete JUSTIN VIVAS MD Oct 18, 2018 16:30
[2018-10-18 22:00] VITALS: BP 130/80
[2018-10-19 00:06] LABS: MYCOPLASMA PNEUMONIAE IgG 155 U/mL (0-99); MYCOPLASMA PNEUMONIAE IgM <770 U/mL (0-769)
[2018-10-19] MEDS: LACRILUBE (AKWA TEARS) OPHTH OINT 3.5 GM OU SCH ×3 (03:33→09:33)
[2018-10-19 06:00] VITALS: BP 132/81
[2018-10-19] MEDS: prednisoLONE ACET 1% OPHTH SUSP 5ML OU SCH (09:33)
[2018-10-19] MEDS: LIDOCAINE VISCOUS 2% SOLN 15ML UDC SS SCH (09:33)
[2018-10-19] MEDS: AZITHROMYCIN 250 MG TAB PO SCH (09:33)
[2018-10-19] MEDS: OFLOXACIN 0.3 % (OCUFLOX) OPTH SOL 5ML OU SCH (09:34)
[2018-10-19] MEDS ORDERED: AZIT-12 PO (10:43)
[2018-10-19] MEDS ORDERED: LIDO2SO SS ×2 (10:43)
[2018-10-19] MEDS ORDERED: OFLO3OPSO OU (10:43)
[2018-10-19] MEDS ORDERED: PREDOPD OU (10:43)
[2018-10-19] MEDS ORDERED: AKWA1OIN OU (10:43)
--- NOTE | 2018-10-19 12:24 | DS.PDOC ---
Discharge Summary General Date of Admission Oct 16, 2018 at 13:05 Date of Discharge October 19, 2018 Discharge Summary CONSULTANTS: OPTHALMOLOGIST: DR. HOOPER ENT: DR. TELLES PROCESSOR SOLID PROPELLANT: DR. WALKER DISCHARGE DIAGNOSES: Mucositis most likely secondary to Mycoplasma or other viral/bacterial mucositis. unlikely to be thompson reese syndrome Pseudomembranous conjunctivitis. 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 upper respiratory infection Odynophagia DISCHARGE MEDS: PLS SEE BELOW HISTORY OF PRESENTING ILLNESS: The patient is a 18 y/o male who presents to the ER for concerns regarding pain in oral mucosa, gum bleeding as well as difficulty opening eyes/" film" in his eyes. The patient reports that last week, he had a respiratory infection. At that time had some cough with some brownish sputum as well as burning in his throat. He reports this week the cough has been whitish/greenish. No associated fevers/chills or sweats. The throat burning has improved. However, on Sunday night, he noticed that his eyes felt a little sticky. He reports he has allergies to hospice as well as some kind of treehe reports he had a allergy te sting done previously but is unsure as to what tree exactly he was allergic to.On Sunday, the patient noticed that his lips and face were swollen and also felt some pain on the inside of his lips when he thought there might be some carts. He also noticed on Sunday when he tried to pressures teeth that there was some gum bleeding. On Sunday, he noticed bumps under the tongue. He reports that the inside of his mouth started burning. He reports he was started on prednisone 40 mg daily as well as hydroxyzine 50 mg which she has been [place]. On Sunday morning, he reports it took a while for him to be able to open his eyes as they were sticky. His mouth was burning again. Today, the patient reports he could not open his eyes again and he also has been having difficulty swallowing food secondary to the pain in his mouth. As a result, he presented to the ER. No specific aggravating factor. No specific relieving factor. Severity of his symptoms is moderate. As noted, symptoms did not improve despite prednisone and hydroxyzine. MUCOSITIS, unlikely to be thompson johnsons syndrome -per Derm, most likely mycoplasma, viral, or bacterial -discontinued cyclosporine 100 g twice daily, on prednisone 60 mg twice daily discontinued -Preservative-free artificial tear ointment every 4 hours to both eyes -Case was discussed with Dr. Hooper from ophthalmologyhe recommends ophthalmic prednisone as well as moxifloxacin eyedrops. -Because of the sloughing, patient had developed a film over his eyes which was limiting his vision - the film was cleared by Dr. Hooper -Outpatient follow-up with him in one week if improves, otherwise he will reevaluate as inpatient if needed. -Dr. Chapman, Dermatology, has been consulted. -Pt continues to complain of sore throat, tongue tenderness, and gingival pain. "It feels like the skin in my throat is burning." No c/o sob. c/o odynophagia. no hematemesis, nausea, or vomiting. still w painful eyes. no redness. Per [employer],Dr. Chapman, check mono, mycoplasma, and respiratory panel due to h/o URI symptoms, continue tapered prednisone, and dc cyclosporine. ENT. Dr. Telles has been consulted for odynophagia for laryngoscopy. -s/p 10/17/18 nasopharyngoscope,"nose, nasopharynx, oropharynx, hypopharynx and larynx with hyperemia, ulcers. similar findings in the posterior pharyngeal wall. The rest of the examination was normal except that there was erosion of the nasal septum anteriorly on both sides." Pseudomembranous conjunctivitis. 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 -out pt fu with handle turner, dr. hooper. -continued on recommended eyedrops, abx. upper respiratory infection -Lungs sound clear. cxr negative -Afebrile -Normal WBC -due to concerns of mycoplasma infection, reasonable to start on azithromycin. -mono, mycoplasma pending and respiratory panel neg -strep negative -respiratory panel negative Odynophagia -r/o pharyngeal extension with laryngoscopy -ENT Dr. Telles consulted. -s/p 10/17/18 nasopharyngoscope,"nose, nasopharynx, oropharynx, hypopharynx and larynx with hyperemia, ulcers. similar findings in the posterior pharyngeal wall. The rest of the examination was normal except that there was erosion of the nasal septum anteriorly on both sides." DVT prophylaxis: -SCDs DISCHARGE Physical Examination VITALS: PLS SEE BELOW General Exam: Positive: Alert, Cooperative, No Acute Distress Eye Exam: Positive: PERRLA, Other Eye Symptoms (slight conjunctival injection. Cornea appears clear. Slight thickened secretions/superficial material noted - no obvious purulence.) ENT Exam: Positive: Other ENT (superficial sloughing involving oral mucosa or the palate, buccal mucosa as well as under the tongue) Chest Exam: Positive: Clear to auscultation, Normal air movement Heart Exam: Positive: Rate Normal, Normal S1, Normal S2 Abdomen Exam: Positive: Normal bowel sounds, Soft Skin Exam: Negative: Rash Neuro Exam: Positive: Other (awake, alert, oriented 3. Strength 5 over 5 in bilateral upper and lower extremities. No lateralizing deficit.) Psych Exam: Positive: Mental status NL LABORATORY DATA, IMAGING STUDIES, MICROBIOLOGY: PLS SEE BELOW TIME SPENT ON DISCHARGE: 30MIN Vital Signs/I&Os Vital Signs Date Time Temp Pulse Resp B/P (MAP) Pulse Ox O2 Delivery O2 Flow Rate FiO2 10/19/18 06:00 97.6 51 16 132/81 (98) 100 10/16/18 14:10 Room Air I&O- Last 24 Hours up to 6 AM 10/19/18 06:00 Intake Total 540 ml Output Total 900 ml Balance -360 ml Microbiology Microbiology 10/16/18 Respiratory Virus Panel (PCR) (TASIA) - Final, Complete 10/16/18 Group A Streptococcus Screen (TASIA) - Final, Complete Discharge Medications Scheduled Azithromycin (Azithromycin) 250 Mg Tablet, 500 MG PO DAILY Lidocaine HCl (Lidocaine HCl Viscous) 15 Ml Solution, 5 ML SS AC Mineral Oil/Petrolatum,White (Artificial Tears Eye Ointment) 3.5 Gm Oint...g., 0 DOSE OU Q4H Ofloxacin (Ofloxacin) 5 Ml Drops, 1 DROP OU QID Prednisolone Acetate (Prednisolone Acetate 1% Opth Susp) 5 Ml Drops.susp, 1 DROP OU QID Scheduled PRN Lidocaine HCl (Lidocaine HCl Viscous) 15 Ml Solution, 5 ML SS Q4HP PRN for SORE THROAT Allergies Coded Allergies: horse dander (Unverified Allergy, Unknown, 10/16/18) JUSTIN VIVAS MD Oct 19, 2018 12:19
[2018-10-20 00:06] LABS: MYCOPLASMA PNEUMONIAE IgG 129 U/mL (0-99); MYCOPLASMA PNEUMONIAE IgM <770 U/mL (0-769)
== END 2018-10-19 11:34 | disposition home or self-care (01) | DRG 159 ==
LOC: M ED 06:50 → M ED INP 13:05 → M MSPAV 14:19
PROVIDERS: ADMIT Internal Medicine; ATTEND General Practice
DX: K12.39 Other oral mucositis (ulcerative) (principal); J30.81 Allergic rhinitis due to animal (cat) (dog) hair and dander; J06.9 Acute upper respiratory infection, unspecified; Z79.52 Long term (current) use of systemic steroids; H10.22 Pseudomembranous conjunctivitis; H54.62 Unqualified visual loss, left eye, normal vision right eye

== ENCOUNTER 2019-04-15 08:00 | Emergency (ER) | payer OTHER ==
[~2019-04-15] VITALS: Ht 175.3 cm; Wt 63.4 kg
[~2019-04-15 08:00] MED LIST: AKWA1OIN OU; ALLE1DRO2 OP; AZIT-12 PO; EPIP0.3I2 IM; HYDR-3363 PO; HYDR50TA70 PO; LIDO2SO SS; OFLO3OPSO OU; PRED20TA PO; PREDOPD OU; ZADI1DRO OU
[2019-04-15 08:01] VITALS: BP 134/95
[2019-04-15] MEDS ORDERED: PRED20TA PO ×2 (08:37→09:30)
[2019-04-15] MEDS ORDERED: CIPROFLOXACIN 0.3% OPHTH SOLN 2.5ML OS ONE (09:15)
[2019-04-15] MEDS ORDERED: predniSONE 20 MG TAB PO ONE (09:15)
== END 2019-04-15 09:36 | disposition home or self-care (01) ==
LOC: M ED 08:00
DX: H10.9 Unspecified conjunctivitis (principal); K12.2 Cellulitis and abscess of mouth; J30.89 Other allergic rhinitis

== ENCOUNTER → 2019-07-15 | Outpatient (CLI) | payer OTHER ==
[2019-07-17 00:08] LABS: EBV VIRAL CAPSID AG IgM <36.0 U/mL (0.0-35.9)
[2019-07-19 00:06] LABS: CYTOMEGALOVIRUS IgM ANTIBODY <30.0 AU/mL (0.0-29.9); EBV VIRAL CAPSID AG IgM <36.0 U/mL (0.0-35.9); G6PD2 4.72 x10E6/uL (4.14-5.80); G6PD3 319 (146-376); HSV TYPE I IgG SPECIFIC <0.91 index (0.00-0.90); HSV TYPE I IgM AB <1:10 titer (<1:10); HSV TYPE II IgG SPECIFIC <0.91 index (0.00-0.90); HSV TYPE II IgM ABY <1:10 titer (<1:10)
== END ==
LOC: M LAB 12:29
PROVIDERS: ATTEND Dermatology
DX: K12.39 Other oral mucositis (ulcerative) (principal)
CPT/HCPCS: 36415; 82955; 86644; 86645; 86664; 86665; 86695; 86696; G0463

== ENCOUNTER → 2019-10-22 | Outpatient (CLI) | payer OTHER ==
[2019-10-22 12:41] LABS: BASO % 0.3 % (0.0-1.0); EOS # 0.1 10^3/uL (0.0-0.5); EOS % 1.8 % (0.0-3.0); HEMOGLOBIN 15.1 g/dl (13.5-17.5); LYMPH # 1.6 10^3/uL (1.5-5.0); LYMPH % 49.8 % (24.0-44.0); MEAN CORPUSCULAR HEMOGLOBIN 31.5 pg (27.0-33.0); MEAN CORPUSCULAR HGB CONC 33.6 g/dl (32.0-36.5); MEAN CORPUSCULAR VOLUME 93.8 fl (80.0-96.0); MONO # 0.3 10^3/uL (0.0-0.8); MONO % 8.6 % (0.0-5.0); NEUTROPHILS # 1.3 10^3/uL (1.5-8.5); NEUTROPHILS % 38.9 % (36.0-66.0); PLATELET COUNT, AUTOMATED 238 10^3/uL (150-450); WHITE BLOOD COUNT 3.3 10^3/uL (4.0-10.0)
[2019-10-22 13:16] LABS: ALBUMIN 3.9 GM/DL (3.2-5.2); ALT/SGPT 27 U/L (12-78); BILIRUBIN,TOTAL 0.3 MG/DL (0.2-1.0); BLOOD UREA NITROGEN 24 MG/DL (7-18); CALCIUM LEVEL 9.5 MG/DL (8.5-10.1); CARBON DIOXIDE LEVEL 29 MEQ/L (21-32); CHLORIDE LEVEL 99 MEQ/L (98-107); CREATININE FOR GFR 1.42 MG/DL (0.70-1.30); GLOMERULAR FILTRATION RATE > 60.0 (>60); GLUCOSE, FASTING 97 MG/DL (70-100); IMMUNOGLOBULIN G 1010 MG/DL (681-1648); POTASSIUM SERUM 4.1 MEQ/L (3.5-5.1); SODIUM LEVEL 135 MEQ/L (136-145); TOTAL PROTEIN 7.5 GM/DL (6.4-8.2)
[2019-10-22 13:18] LABS: VITAMIN B12 LEVEL 218 PG/ML
[2019-10-22 13:19] LABS: FOLATE 4.4 NG/ML
[2019-10-22 13:29] LABS: HEPATITIS B SURFACE ANTIGEN NEGATIVE (NEGATIVE)
[2019-10-22 13:56] LABS: HEPATITIS B CORE ANTIBODY IGM NEGATIVE (NEGATIVE); HEPATITIS C VIRUS ABY INDEX 0.1 INDEX (<0.8)
[2019-10-22 13:57] LABS: HIV 1&2 SCREEN CENTAUR NEGATIVE (NEGATIVE)
[2019-10-22 13:58] LABS: HEPATITIS A ANTIBODY IGM NEGATIVE (NEGATIVE)
[2019-10-24 08:06] LABS: COPPER PLASMA 104 ug/dL (72-166)
== END ==
LOC: M LAB 11:50
PROVIDERS: ATTEND Internal Medicine Medical Oncology
DX: D72.819 Decreased white blood cell count, unspecified (principal)

== ENCOUNTER → 2019-11-25 | Outpatient (CLI) | payer OTHER ==
[2019-11-25 16:28] LABS: BASO % 0.9 % (0.0-1.0); EOS # 0.1 10^3/uL (0.0-0.5); EOS % 4.4 % (0.0-3.0); HEMATOCRIT 42.7 % (42.0-52.0); HEMOGLOBIN 14.8 g/dl (13.5-17.5); LYMPH % 43.2 % (24.0-44.0); MEAN CORPUSCULAR HEMOGLOBIN 32.4 pg (27.0-33.0); MEAN CORPUSCULAR HGB CONC 34.7 g/dl (32.0-36.5); MEAN CORPUSCULAR VOLUME 93.4 fl (80.0-96.0); MONO # 0.3 10^3/uL (0.0-0.8); MONO % 12.8 % (0.0-5.0); NEUTROPHILS % 38.7 % (36.0-66.0); PLATELET COUNT, AUTOMATED 196 10^3/uL (150-450); RED BLOOD COUNT 4.57 10^6/uL (4.30-6.10); WHITE BLOOD COUNT 2.3 10^3/uL (4.0-10.0)
[2019-11-25 16:47] LABS: ALBUMIN 4.4 GM/DL (3.2-5.2); ALT/SGPT 27 U/L (12-78); BILIRUBIN,TOTAL 1.2 MG/DL (0.2-1.0); BLOOD UREA NITROGEN 23 MG/DL (7-18); CALCIUM LEVEL 10.1 MG/DL (8.5-10.1); CARBON DIOXIDE LEVEL 30 MEQ/L (21-32); CHLORIDE LEVEL 99 MEQ/L (98-107); CREATININE FOR GFR 1.52 MG/DL (0.70-1.30); GLOMERULAR FILTRATION RATE > 60.0 (>60); GLUCOSE, FASTING 78 MG/DL (70-100); POTASSIUM SERUM 4.3 MEQ/L (3.5-5.1); SODIUM LEVEL 136 MEQ/L (136-145)
[2019-11-25 17:04] LABS: NEUTROPHILS # 0.9 10^3/uL (1.5-8.5)
== END ==
LOC: M LAB 14:11
PROVIDERS: ATTEND Internal Medicine Medical Oncology
DX: D72.819 Decreased white blood cell count, unspecified (principal)